=== PATIENT | male | born 1995 | race Caucasian/White ===

== ENCOUNTER 2018-07-15 22:51 | Emergency (ER) | payer SELFPAY ==
[2018-07-15] MEDS ORDERED: Ibuprofen 800 MG TAB ONE (23:09)
== END 2018-07-15 23:45 | disposition home or self-care (01) ==
LOC: ERS 22:51
DX: J10.1 Influenza due to other identified influenza virus with other respiratory manifestations (principal)
CPT/HCPCS: 87804; 99283